=== PATIENT | male | born 1965 | race Hispanic/Latino ===

== ENCOUNTER → 2021-12-24 | Outpatient (CLI) | payer OTHER | END | disposition home or self-care (01) | LOC: RAH 14:35 | PROVIDERS: ATTEND Internal Medicine Critical Care Medicine | DX: J98.4 Other disorders of lung (principal) | CPT/HCPCS: 71250 ==

== ENCOUNTER → 2024-11-12 | Outpatient (CLI) | payer OTHER ==
[2024-11-12 12:48] LABS: IMMATURE GRANULOCYTE ABSOLUTE 0.01 K/uL (0-1); NUCLEATED RED BLOOD CELLS 0.0 % (0.0-0.19); PLATELET COUNT (AUTO) 205 K/uL (130-400); RED BLOOD CELL COUNT(AUTO) 5.40 MIL/uL (4.50-6.20); RED CELL DISTRIBUTION WIDTH 12.7 % (11.0-15.5); WHITE BLOOD COUNT (AUTO) 7.7 K/uL (4.8-10.8)
--- NOTE | 2024-11-12 18:18 | EKG ---
[facility] Test Date: 2024-11-12 Test Time: 12:35:31 Pat Name: RENEA DE LA GARZA Department: [facility] Room: Gender: M Patient Registration Specialist: [id number] : 1965 Requested By: AYAN HESTER Order Number: [id number] Reading MD: Piter Randolph Measurements Intervals [place] Rate: 64 P: 60 [place]: 217 QRS: 61 QRSD: 94 T: 27 QT: 382 QTc: 395 Interpretive Statements Sinus rhythm Prolonged [place] interval No previous ECG available for comparison Electronically Signed On 11-14-2024 21:37:42 CDT by Piter Randolph Please click the below link to view image of tracing.
== END | disposition home or self-care (01) ==
LOC: RAH 11:35
PROVIDERS: ATTEND Family Medicine
DX: I44.0 Atrioventricular block, first degree (principal); I10 Essential (primary) hypertension
CPT/HCPCS: 36415; 85025; 93005